=== PATIENT | female | born 1980 | race Hispanic/Latino ===

== ENCOUNTER 2017-09-04 20:07 | Emergency (ER) | payer SELFPAY ==
[2017-09-04 20:23] VITALS: BP 134/86; TEMP 98.6; O2SAT 97
[2017-09-04] MEDS ORDERED: SULFA/TRIMETH 800/160 (DS) TAB 1 EA TAB PO ONE (20:44)
--- NOTE | 2017-09-04 20:47 | ED.PDOC ---
History of Present Illness - General Chief Complaint: Skin/Abrasion/Tear Stated Complaint: right cheek abcess Time Seen by Provider: 09/04/17 20:16 Source: patient, family Exam Limitations: language barrier - family member interprets - History of Present Illness Initial Comments: the patient is a 37-year-old female presenting to the emergency room secondary to a small 1 severe abscess just below the border of her right side lower lip. It has been present for 1-2 days. No fevers. Has been draining mildly. Timing/Duration: 24 hours Severity: mild Improving Factors: nothing Worsening Factors: nothing Associated Symptoms: denies symptoms Allergies/Adverse Reactions: Allergies NO KNOWN ALLERGY Allergy (Verified 09/04/17 20:23) Home Medications: Ambulatory Orders Ibuprofen [Motrin Tab] 600 mg PO Q8H PRN #15 tab 07/04/16 Acetaminophen [Tylenol] 325 mg PO .Q4H PRN 09/04/17 Sulfa/Trimeth 800/160 (Ds) Tab [Bactrim DS Tab] 1 ea PO BID #10 tab 09/04/17 Review of Systems - Review of Systems Constitutional: States: no symptoms reported EENTM: States: see HPI Respiratory: States: no symptoms reported Cardiology: States: no symptoms reported Gastrointestinal/Abdominal: States: no symptoms reported Genitourinary: States: no symptoms reported Musculoskeletal: States: no symptoms reported Skin: States: see HPI Neurological: States: no symptoms reported All other Systems: No Change from Baseline Past Medical History (General) - Patient Medical History Hx Seizures: No Hx Stroke: No Hx Dementia: No Hx Asthma: No Hx of COPD: No Hx Cardiac Disorders: No Hx Congestive Heart Failure: No Hx Pacemaker: No Hx Hypertension: No Hx Thyroid Disease: No Hx Diabetes: No Hx Gastroesophageal Reflux: No Hx Renal Disease: No Hx Cancer: No Hx of HIV: No Hx Hepatitis C: No Hx MRSA: No - Vaccination History Hx Tetanus, Diphtheria Vaccination: Yes Hx Influenza Vaccination: Yes Hx Pneumococcal Vaccination: No - Social History Hx Tobacco Use: No Hx Chewing Tobacco Use: No Hx Alcohol Use: No Hx Substance Use: No Hx Substance Use Treatment: No Hx Depression: No Feels Threatened In Home Enviroment: No Feels Threatened In a Relationship: No Hx Physical Abuse: No Hx Emotional Abuse: No Hx Suspected Abuse: No - Female History Patient : No Family Medical History - Family History Mother Family History: No Known Living Status: Still Living Physical Exam - Physical Exam General Appearance: Alert, No apparent distress Eye Exam: bilateral normal Ears, Nose, Throat: hearing grossly normal, normal ENT inspection, normal pharynx Neck: full range of motion, supple Respiratory: no respiratory distress, no accessory muscle use Cardiovascular/Chest: normal peripheral pulses, no edema Peripheral Pulses: radial,right: 2+, radial,left: 2+ Rectal Exam: deferred Extremity: normal range of motion, normal inspection, normal capillary refill 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 Risks and benefits were explained and the wound is cleaned with alcohol swab. An 18- gauge needle was used for incision and drainage. Less than 1 cc of pus was obtained. The patient was given a dose of Bactrim will be placed on Bactrim for the next 5 days. ER warnings were given for any worsening. Departure - Departure Clinical Impression: Abscess Disposition: Discharge to Home or Self Care Condition: Fair Departure Forms: ED Discharge - Pt. Copy, Patient Portal Self Enrollment Instructions: DI for Wound Infection Diet: regular diet Activity: increase activity as tolerated Referrals: Ishmael Lemos III, MD [Primary Care Provider] - 1-2 Weeks Prescriptions: Sulfa/Trimeth 800/160 (Ds) Tab [Bactrim DS Tab] 1 ea PO BID #10 tab Home Medications: Ambulatory Orders Ibuprofen [Motrin Tab] 600 mg PO Q8H PRN #15 tab 07/04/16 Acetaminophen [Tylenol] 325 mg PO .Q4H PRN 09/04/17 Sulfa/Trimeth 800/160 (Ds) Tab [Bactrim DS Tab] 1 ea PO BID #10 tab 09/04/17 Additional Instructions: the patient's a 37-year-old female presenting to the emergency room secondary to a small facial abscess to the right lower chin. Risks and benefits were explained and the wound is cleaned with alcohol swab. An 18- gauge needle was used for incision and drainage. Less than 1 cc of pus was obtained. The patient was given a dose of Bactrim will be placed on Bactrim for the next 5 days. ER warnings were given for any worsening.
== END 2017-09-04 20:54 | disposition home or self-care (01) ==
LOC: ER 20:07
DX: L02.01 Cutaneous abscess of face (principal)